=== PATIENT | female | born 1980 | race Caucasian/White ===

== ENCOUNTER → 2021-12-13 | Outpatient (CLI) | payer OTHER | LOC: ECHO 12:12 | DX: R60.9 Edema, unspecified (principal); R00.0 Tachycardia, unspecified; Q24.8 Other specified congenital malformations of heart; R00.2 Palpitations; R42 Dizziness and giddiness; R07.9 Chest pain, unspecified | CPT/HCPCS: ECHO; 93306 ==

== ENCOUNTER 2022-03-27 19:37 | Emergency (ER) | payer OTHER ==
[2022-03-27 20:30] LABS: HEMOGLOBIN 14.3 gm/dl (12.3-15.3); RED BLOOD COUNT 4.62 M/UL (4.00-5.10); WHITE BLOOD COUNT 9.5 K/UL (4.5-11.0)
[2022-03-27 20:58] LABS: BUN/CREATININE RATIO 16 (0-10)
[2022-03-27] MEDS ORDERED: ZOFRAN ODT 4 MG4 MG PO (23:56)
[2022-03-27] MEDS ORDERED: BENTYL 20MG TAB20 MG PO (23:56)
== END 2022-03-28 00:03 | disposition home or self-care (01) ==
LOC: ER1 19:37
PROVIDERS: Physician Assistant Medical
DX: R10.31 Right lower quadrant pain (principal); R10.32 Left lower quadrant pain; R10.813 Right lower quadrant abdominal tenderness; R10.814 Left lower quadrant abdominal tenderness; I10 Essential (primary) hypertension; Z90.49 Acquired absence of other specified parts of digestive tract; Z90.710 Acquired absence of both cervix and uterus
CPT/HCPCS: 80053; 81001; 85025; 99284; Q9967